=== PATIENT | female | born 1960 | race Caucasian/White ===

== ENCOUNTER 2019-05-21 10:28 | Emergency (ER) | payer MEDICARE ==
[~2019-05-21] VITALS: Ht 162.6 cm; Wt 86.2 kg
== END 2019-05-21 12:43 | disposition home or self-care (01) ==
LOC: ER 10:28
DX: F32.9 Major depressive disorder, single episode, unspecified (principal); F41.0 Panic disorder [episodic paroxysmal anxiety]; F43.10 Post-traumatic stress disorder, unspecified
CPT/HCPCS: 99283